=== PATIENT | female | born 1990 | race Caucasian/White ===

== ENCOUNTER 2019-05-15 21:18 | Emergency (ER) | payer OTHER, MEDICAID ==
[~2019-05-15] VITALS: Ht 160 cm; Wt 63.5 kg
[~2019-05-15 21:18] MED LIST: ACETAMINOPHEN-1 EAC1 PO; ANAPROX DS550 MG PO; AUGMENTIN 875875 MG PO; CEFDINIR300 MG PO; CIPRO500 MG PO; CLONAZEPAM 0.50.5 M1; CLONAZEPAM 1 MG1 M1 PO; FLEXERIL; HYDROCODONE-AP1 EAC6 PO; IBUPROFEN 800800 M1 PO; IBUPROFEN 800800 MG PO; MACROBID 100 M100 M1 PO; MEDROLDOSEPACK PO; NOHOMEMEDICATIONS; NORCO 5-325 TA1 EAC1 PO; NORCO 5-325 TA1 EACH PO; PHENAZOPYRIDIN200 M2 PO; ROBAXIN 750 MG750 M1 PO; ROBAXIN500 MG PO; TRAMADOL 50 MG50 MG PO; VICOPROFEN 2001 EACH PO; VOLTAREN GEL 1100 G1 TOP; XANAX 0.25 MG0.25 MG; XANAX 0.5 MG0.5 M1 PO; XANAX 0.5 MG0.5 MG PO; ZOFRAN ODT4 M1 PO
[2019-05-15] MEDS ORDERED: ATIVAN1 MG PO (21:27)
[2019-05-15] MEDS ORDERED: ZOLOFT100 MG PO (22:40)
[2019-05-15 22:50] LABS: ABSOLUTE BASOPHILS 0.1 thou/uL (0.0-0.2); ABSOLUTE EOSINOPHILS 0.3 thou/uL (0.0-0.7); ABSOLUTE LYMPHOCYTES 3.6 thou/uL (0.8-5.3); ABSOLUTE MONOCYTES 0.9 thou/uL (0.0-1.2); ABSOLUTE NEUTROPHILS 8.1 thou/uL (1.6-8.1); EOSINOPHILS 2.2 %; HEMATOCRIT 40.9 % (37.0-47.0); HEMOGLOBIN 13.9 gm/dL (12.0-15.0); LYMPHOCYTES 27.7 %; MCH 30.9 pg (26.0-34.0); MCV 90.8 fL (80.0-100.0); MONOCYTES 7.2 %; MPV 8.4 fl. (7.2-11.1); NUCLEATED RBCS 0 /100WBC; PLATELET COUNT* 315 thou/uL (150-400); POLYS 61.9 %; RBC 4.51 mil/uL (4.20-5.00); RDW-CV 13.8 % (10.5-14.5); WBC 13.1 thou/uL (4.0-11.0)
[2019-05-15 22:58] LABS: ALBUMIN 4.5 g/dL (3.4-5.0); CALCIUM 9.2 mg/dL (8.5-10.1); CREATININE 0.9 mg/dL (0.6-1.3); TOTAL BILIRUBIN 0.4 mg/dL (<0.1-1.0); TOTAL PROTEIN 7.8 g/dL (6.4-8.2)
[2019-05-15 23:03] LABS: POTASSIUM 3.2 mmol/L (3.5-5.1)
[2019-05-15 23:06] LABS: URINE BILIRUBIN NEGATIVE (Negative); URINE BLOOD TRACE (Negative); URINE CLARITY CLEAR; URINE COLOR YELLOW; URINE GLUCOSE-RANDOM NEGATIVE (Negative); URINE KETONES NEGATIVE (Negative); URINE LEUKOCYTES NEGATIVE (Negative); URINE NITRITE NEGATIVE (Negative); URINE PROTEIN NEGATIVE (Negative); URINE SPECIFIC GRAVITY <= 1.005 (1.005-1.030); URINE UROBILINOGEN 0.2 E.U./dl (0.2-1.0)
[2019-05-15] MEDS ORDERED: LORAZEPAM 0.50.5 M1 PO (23:09)
[2019-05-15 23:16] LABS: AMP/METHAMP Negative (Negative); BARBITURATES Negative (Negative); BENZODIAZEPINES Negative (Negative); COCAINE Negative (Negative); METHADONE Negative (Negative); OPIATES Negative (Negative); PCP Negative (Negative); THC Negative (Negative)
[2019-05-16] VITALS: BP 126/80
--- NOTE | 2019-05-16 16:26 | EKG ---
[place] [address] ELECTROCARDIOGRAM REPORT Name: ROSE MARY NEWMAN Room: 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
== END 2019-05-16 00:02 | disposition home or self-care (01) ==
LOC: M.ERS 21:18
PROVIDERS: Personal Emergency Response Attendant
DX: F41.9 Anxiety disorder, unspecified (principal); G89.29 Other chronic pain; M25.561 Pain in right knee; F32.9 Major depressive disorder, single episode, unspecified; F17.210 Nicotine dependence, cigarettes, uncomplicated; Z88.6 Allergy status to analgesic agent; Z87.440 Personal history of urinary (tract) infections; Z79.899 Other long term (current) drug therapy